=== PATIENT | male | born 1960 | race Two or more races ===

== ENCOUNTER 2016-12-22 06:45 | Emergency (ER) | payer OTHER ==
[~2016-12-22] VITALS: Ht 172.7 cm; Wt 77.1 kg
[2016-12-22 07:03] VITALS: BP 129/95
== END 2016-12-22 09:24 | disposition home or self-care (01) ==
LOC: ER 06:48
DX: S01.81XA Laceration without foreign body of other part of head, initial encounter (principal); E11.9 Type 2 diabetes mellitus without complications; W25.XXXA Contact with sharp glass, initial encounter; Y93.89 Activity, other specified; Y99.8 Other external cause status; Y92.89 Other specified places as the place of occurrence of the external cause
CPT/HCPCS: 12013; 70450